=== PATIENT | female | born 2000 | race Caucasian/White ===

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

== ENCOUNTER 2021-01-30 19:50 | Emergency (ER) | payer OTHER ==
[~2021-01-30] VITALS: Ht 170.2 cm; Wt 61.2 kg
[2021-01-30 21:10] LABS: BASOPHILS ABSOLUTE AUTO 0.01 K/mm3 (0.00-0.23); BASOPHILS PERCENT AUTO 0 % (0-2); EOSINOPHILS ABSOLUTE AUTO 0.01 K/mm3 (0.00-0.68); EOSINOPHILS PERCENT AUTO 0 % (0-6); Hemoglobin 13.8 g/dL (11.5-16.0); IMMATURE GRAN PERCENT AUTO 0 % (0-1); LYMPHOCYTES ABSOLUTE AUTO 0.91 K/mm3 (0.84-5.20); LYMPHOCYTES PERCENT AUTO 25 % (21-46); MONOCYTES ABSOLUTE AUTO 0.39 K/mm3 (0.16-1.47); MONOCYTES PERCENT AUTO 11 % (4-13); Mean Corpuscular HGB 29.7 pg (26.0-34.0); Mean Corpuscular HGB Conc 33.7 g/dL (31.5-36.5); Mean Corpuscular Volume 88 fL (80-100); Mean Platelet Volume 11.2 fL (9.1-12.4); NEUTROPHILS PERCENT AUTO 64 % (41-73); Platelet Count 162 K/mm3 (150-400); RDW Coefficient Variation 12.7 % (11.7-14.2); RDW Standard Deviation 41.5 fL (35.1-46.3); Red Blood Cell Count 4.64 M/mm3 (3.80-5.20); White Blood Cell Count 3.72 K/mm3 (4.00-11.30)
[2021-01-30 21:28] LABS: Alanine Aminotransfer (ALT/SGP 21 U/L (12-78); Albumin, Blood 3.8 g/dL (3.4-5.0); Alk Phos 55 U/L (50-136); Anion Gap 4 mmol/L (6-16); Aspartate Aminotrans (AST/SGOT 22 U/L (12-37); Bilirubin, Total 0.2 mg/dL (0.1-1.0); Blood Urea Nitrogen 11 mg/dL (8-24); CO2, Blood 26 mmol/L (21-32); Calcium, Blood 8.9 mg/dL (8.5-10.1); Chloride, Blood 108 mmol/L (98-108); Creatinine, Blood 0.78 mg/dL (0.40-1.00); Globulin, Blood 3.9 g/dL (2.2-4.0); Glomerular Filtration Rate >60 (60-); Glucose, Blood 94 mg/dL (70-99); Potassium, Blood 3.8 mmol/L (3.5-5.5); Sodium, Blood 138 mmol/L (136-145); Total Protein, Blood 7.7 g/dL (6.4-8.2)
[2021-01-30 21:36] LABS: Source, Urine Voided
[2021-01-30 21:38] LABS: Appearance, Urine Hazy (Clear); Bilirubin, Urine Neg (Neg); Blood, Urine Neg (Neg); Color, Urine Yellow (P-Yellow); Glucose Qualitative, Urine Neg (Neg); Ketones, Urine 1+ (Neg); Leukocyte Esterase, Urine Neg (Neg); Nitrite, Urine Neg (Neg); Protein, Urine 2+ (Neg); Specific Gravity, Urine 1.025 (1.003-1.022); Urobilinogen, Urine 1+ (Normal)
[2021-01-30 21:46] LABS: Bacteria Many /hpf; Red Blood Cells, Urine Not Seen /hpf (0-2); Squamous Epithelial Cells Mod /hpf (Few); White Blood Cells, Urine 0-2 /hpf (0-5)
== END 2021-01-30 23:00 | disposition home or self-care (01) ==
LOC: ER 19:50
PROVIDERS: Emergency Medicine; Physician Assistant
DX: U07.1 COVID-19 (principal)
CPT/HCPCS: 71045; 80053; 81001; 85025; 87086; 96374; 99284-25; J1885; J7030

== ENCOUNTER 2022-03-02 07:07 | Emergency (ER) | payer OTHER ==
[~2022-03-02] VITALS: Ht 170.2 cm; Wt 63.5 kg
[2022-03-02] MEDS ORDERED: CEPH500 PO (08:39)
[2022-03-02] MEDS ORDERED: Norco 5-325 Ta1 EACH PO (10:42)
== END 2022-03-02 11:15 | disposition home or self-care (01) ==
LOC: ER 07:07
DX: S62.634B Displaced fracture of distal phalanx of right ring finger, initial encounter for open fracture (principal); W27.8XXA Contact with other nonpowered hand tool, initial encounter; Y92.69 Other specified industrial and construction area as the place of occurrence of the external cause; Z87.891 Personal history of nicotine dependence
CPT/HCPCS: 73130; 90714; A9270

== ENCOUNTER 2025-07-03 16:08 | Observation (INO) | payer OTHER ==
[~2025-07-03] VITALS: Ht 170.2 cm; Wt 61.2 kg
[~2025-07-03 16:08] MED LIST: CEPH500 PO; Norco 5-325 Ta1 EACH PO
[2025-07-03 16:49] LABS: BASOPHILS ABSOLUTE AUTO 0.04 K/mm3 (0.00-0.23); BASOPHILS PERCENT AUTO 1 % (0-2); EOSINOPHILS ABSOLUTE AUTO 0.13 K/mm3 (0.00-0.68); EOSINOPHILS PERCENT AUTO 2 % (0-6); Hematocrit 42.9 % (33.0-51.0); Hemoglobin 14.7 g/dL (11.5-16.0); IMMATURE GRAN ABSOLUTE AUTO 0.03 K/mm3 (0.00-0.10); IMMATURE GRAN PERCENT AUTO 0 % (0-1); LYMPHOCYTES ABSOLUTE AUTO 2.17 K/mm3 (0.84-5.20); LYMPHOCYTES PERCENT AUTO 25 % (21-46); MONOCYTES ABSOLUTE AUTO 0.58 K/mm3 (0.16-1.47); MONOCYTES PERCENT AUTO 7 % (4-13); Mean Corpuscular HGB Conc 34.3 g/dL (31.5-36.5); Mean Corpuscular Volume 90 fL (80-100); NEUTROPHILS ABSOLUTE AUTO 5.63 K/mm3 (1.96-9.15); NEUTROPHILS PERCENT AUTO 66 % (41-73); NRBC ABSOLUTE 0.00 K/mm3 (0.00-0.02); NRBC Auto 0.0 /100 WBC (0.0-0.2); Platelet Count 294 K/mm3 (150-400); RDW Coefficient Variation 12.6 % (11.7-14.2); RDW Standard Deviation 41.5 fL (35.1-46.3)
[2025-07-03 17:17] LABS: Ethanol (Alcohol), Blood, Med <3 mg/dL; Salicylate <1.7 mg/dL (2.8-20.0)
[2025-07-03 17:23] LABS: U Amphetamine Screen Not Detected; U Barbiturate Screen Not Detected; U Benzodiazapine Screen Not Detected; U Cannabinoids Screen DETECTED; U Cocaine Screen Not Detected; U Methadone Screen Not Detected; U Methamphetamine Screen Not Detected
[2025-07-03 17:24] LABS: U Buprenorphine Screen Not Detected; U Opiates Screen Not Detected; U Oxycodone Screen Not Detected; U Phencyclidine Screen Not Detected
[2025-07-03 17:31] LABS: Alanine Aminotransfer (ALT/SGP 22 U/L (12-78); Albumin, Blood 4.3 g/dL (3.4-5.0); Albumin/Globulin Ratio 1.2 (0.8-1.8); Anion Gap 9 mmol/L (3-11); Aspartate Aminotrans (AST/SGOT 19 U/L (12-37); Bilirubin, Total 0.5 mg/dL (0.1-1.0); Blood Urea Nitrogen 8 mg/dL (8-24); CO2, Blood 24 mmol/L (21-32); Calcium, Blood 9.5 mg/dL (8.5-10.1); Chloride, Blood 106 mmol/L (98-108); Creatinine, Blood 0.72 mg/dL (0.40-1.00); Globulin, Blood 3.5 g/dL (2.2-4.0); Glucose, Blood 96 mg/dL (70-99); Potassium, Blood 3.6 mmol/L (3.5-5.5); Sodium, Blood 135 mmol/L (136-145); Total Protein, Blood 7.8 g/dL (6.4-8.2)
[2025-07-03 17:53] LABS: Acetaminophen, Random <2.0 ug/mL (10.0-30.0)
[2025-07-04 08:44] VITALS: BP 113/78
[2025-07-08] MEDS ORDERED: MIRT15 PO (11:06)
== END 2025-07-04 15:22 | disposition other institution (70) ==
LOC: ER 16:08 → EOR 16:09
PROVIDERS: ADMIT Student in an Organized Health Care Education/Training Program
DX: T45.0X2A Poisoning by antiallergic and antiemetic drugs, intentional self-harm, initial encounter (principal); F33.9 Major depressive disorder, recurrent, unspecified; F17.290 Nicotine dependence, other tobacco product, uncomplicated; F12.10 Cannabis abuse, uncomplicated
CPT/HCPCS: 80053; 80320; 81025; 85025; 93005; 93010; 99285-25; A9270; G0378; G0480

== ENCOUNTER 2025-07-04 08:40 | Inpatient (IN) | payer OTHER ==
[~2025-07-04] VITALS: Ht 170.2 cm; Wt 60.5 kg
[2025-07-04 15:40] VITALS: BP 115/82
[2025-07-04 16:01] VITALS: BP 115/82
--- NOTE | 2025-07-04 17:10 | NUR ---
ADMISSION NOTE/SHIFT SUMMARY PT ARRIVED FROM [facility] AT APPROX 1536. PT WAS PLACED ON INVOLUNTARY HOLD AFTER SUICIDE ATTEMPT VIA OD ON "A BOTTLE OF CLARITIN." PT ENDORSES STILL FEELING SUICIDAL, STATING "I HAVE ALWAYS FELT LIKE THIS," BUT DENIES PLAN OR INTENT TO CARRY OUT THOUGHTS AT THIS TIME. PT'S AFFECT IS CONSTRICTED, BUT GENERALLY COOPERATIVE WITH INTAKE. SHE DECLINED ANY FURTHER PERSONAL DETAILS OR TRIGGERING EVENTS THAT CONTRIBUTED TO HER STATE OF MIND. THE PT WAS UNABLE TO REMOVE A RIGHT SIDE NOSE RING AND LEFT DERMAL PIERCING TO HER CHEEK. PT WAS TEARFUL ON AND OFF DURING ASSESSMENT. SHE ENDORSES POOR SOCIAL SUPPORT AND POTENTIAL UNSTABLE LIVING ENVIRONMENT. SHE CURRENTLY OWNS HER HOME WHERE SHE LIVES WITH HER AND MOTHER IN [place]. SHE IS EMPLOYED AT THE LOCAL [employer]. PT STATES THAT SHE IS OPEN TO MENTAL HEALTH TREATMENT INCLUDING MEDICATIONS, BUT IN THE PAST SHE HAS NOT SEEKED [facility] DUE TO INABILITY TO PAY AND FEAR OF MEDICATION SIDE EFFECTS. PT'S ADMISSION WAS COMPLETED AND SHE WAS ORIENTED TO THE UNIT AND PROVIDED WITH SHOWER SUPPLIES. PT ALSO USED TO PHONE TO REACH OUT TO HER JOB TO NOTIFY THEM OF HER ABSENCE. PT IS CURRENTLY SITTING IN GROUP ROOM WATCHING TV WITH PEERS. SHE DENIES ANY NEEDS AT THIS TIME.
[2025-07-04] MEDS ORDERED: Aluminum Hydroxide 320MG/5ML 473 ML PO PRN (18:25)
[2025-07-04] MEDS ORDERED: FLU VACC TS2025-26(6MOS UP)/PF 45 MCG/0.5 ML SYRINGE IM ONE (18:30)
[2025-07-04] MEDS ORDERED: Ondansetron 4 MG SoluTab MM PRN (18:35)
[2025-07-04] MEDS ORDERED: Polyethylene Glycol 3350 17 gm PO PRN (18:35)
[2025-07-04] MEDS ORDERED: FLU VACC TS2025-26(6MOS UP)/PF 45 MCG/0.5 ML SYRINGE IM SCH (19:00)
[2025-07-04 20:06] VITALS: BP 108/76
--- NOTE | 2025-07-04 23:38 | NUR ---
MID SHIFT SUMMARY PATIENT UP IN [place] WATCHING MOVIE WITH PEERS. VERBALIZED SHE IS FEELING "LOST" POOR EYE CONTACT DURING ASSESSMENT. DENIES SI, HI OR AVTH. VERBALIZED THAT SHE WORKS NIGHTS AND REQUESTING SLEEP AID TONIGHT TRAZODONE GIVEN. PIERCING INTACT TO LEFT CHEEK AND RIGHT NOSE. AFTER SNACK AND WATCHING END OF MOVIE PATIENT GOING TO BED. APPEARS TO BE SLEEPING RESP EVEN AND UNLABORED. CONTINUE TO MONITOR Q15MIN.
--- NOTE | 2025-07-05 04:06 | NUR ---
END OF SHIFT UPDATE ASSUMED CARE OF PT AT 0015. NO ACUTE CHANGES, PT HAS REMAINED IN BED. Q15 MINUTE CHECKS TO CONTINUE PER PT SAFETY AND WELLNESS.
[2025-07-05] MEDS ORDERED: Multivitamins 1 Tab PO SCH (09:00)
--- NOTE | 2025-07-05 15:56 | NUR ---
SHIFT SUMMARY tHIS IS AN INVOLUNTARY PATIENT ON A HOLD UNTIL 07/08/25. SHE HAS NO INSIGHT TO WHY SHEIS ON A HOLD. SHE FEELS LIKE HER MADE HER COME TO THE ER, AND THEN THE DRMarlee PUT HER ON A HOLD FOR NO REASON. (ATTEMPTED TO OD ON CLARITIN). THE PATIENTS THOUGHT PROCESS APPEARS TO NOT BE LOGICAL BASED ON THE ABOVE. THOUGHT CONTENT IS NOT PARANOID OR DELUSIONAL BUT HER AFFECT IS FLAT AND SHE APPEARS TO BE DEPRESSED. SHE DENIES SI, AH, VH, SH. SHE STATES THE ONLY THING i HAVE IS REGRET. SHE REGRETS TELLING HER THAT SHE SWALLOWED CLARITIN. HER APPEARANCE IS DISVEVELED AND SHE SPENT THE MAJORITY OF HER DAY IN BED. PATIENT HAS CLEAR SPEECH AND IS ABLE TO MAKE HER NEEDS KNOWN. SHE HAS PIERCINGS- NOSE-IN PLACE, CHEEK-UNDER EYE 2 AND BOTH ARE IN PLACE.
[2025-07-05 19:12] VITALS: BP 127/79
--- NOTE | 2025-07-06 05:19 | NUR ---
Patient spent the evening out in the milieu with her peers. She states she still "has suicidal feelings" but has no plan at this time. She denies HI, AVDANIEL during evening assessment. Up for snack Then to bed for the rest of the night. Will continue close monitoring every 15 minutes for comfort and safety
[2025-07-06 08:46] LABS: CHOL/HDL RATIO 2.8; Cholesterol 158 mg/dL (50-200); HDL Cholesterol 57 mg/dL (>39); LDL/HDL RATIO 1.5; Low Density Lipoprotein Chol 86 mg/dL (0-110); Triglycerides 77 mg/dL (30-140); Very Low Density Lipoprot Chol 15 mg/dL (6-28)
[2025-07-06 08:57] VITALS: BP 126/87
--- NOTE | 2025-07-06 17:27 | NUR ---
SHIFT SUMMARY PT DENIES SI/HI/AVTH THIS SHIFT. SHE IS EUTHYMIC AND INTERACTING WITH PEERS AND STAFF ON THE UNIT. PT IS CALM THIS SHIFT. SHE ATTENDED GROUPS AND MEALS. PT ASKED THIS RN TO CALL HER WORK HR DEPARTMENT AT [facility] AND LET THEM KNOW THAT SHE WAS HOSPITALIZED UNTIL FURTHER NOTICE. SHE DID REQUEST A WORK NOTE UPON D/C. THIS RN NOTIFIED HR, REQUESTED. THEY WILL BE SENDING A PACKET OF PAPERS VIA MAIL AND EMAIL TO [employer] EMA[employer]. FOR PT TO FILL OUT FOR HER MEDICAL WORK RELEASE. PT WAS NOTIFIED OF THIS INFORMATION, WAS [employer]. PT HAD NO EXCEPTIONAL BEHAVIORS TO REPORT THIS SHIFT.
[2025-07-06 19:21] VITALS: BP 120/79
--- NOTE | 2025-07-07 04:23 | NUR ---
SHIFT SUMMARY 24 YEAR-OLD FEMALE PRESENTS WELL GROOMED. SHE IS ALERT AND ORIENTED. SHE SPEAKS IN A CLEAR VOICE AND IN AN APPROPRIATE VOLUME. SHE IS ABLE TO MAKE AND KEEP EYE CONTACT DURING CONVERSATIONS. AT THE TIME OF HER ASSESSMENT, SHE DESCRIBED HER MOOD "PRETTY GOOD/5 OUT OF 5". SHE ALSO DENIED SI, HI, AND AVTH AT THAT TIME. SHE ATTENDED SNACK AND DAY ROOM. SHE WAS COMPLIANT WITH CARE AND MEDICATION ADMINISTRATION. SHE DID NOT RECEIVE ANY PRN MEDICATIONS. PIERCINGS IN HER LEFT EYEBROW AND RIGHT NOSTRIL AND INTACT. SHE CONTINUES TO BE MONITORED EVERY 15 MINUTES FOR WELLNESS AND SAFETY.
[2025-07-07 08:42] VITALS: BP 120/83
--- NOTE | 2025-07-07 09:15 | NUR ---
JEWELRY NOSE PIERCING AND DERMALS IN PLACE.
--- NOTE | 2025-07-07 18:10 | NUR ---
SHIFT SUMMARY PT DENIES SI, HI, AVTH. PLEASANT AND COOPERATIVE. HAS BEEN TO MEALS, GROUPS, AND INTERACTING W/ PEERS/STAFF. NO ACUTE EVENTS TODAY. JEWELRY STILL IN PLACE (SEE PREVIOUS NOTE).
[2025-07-07 19:15] VITALS: BP 130/87
--- NOTE | 2025-07-08 04:09 | NUR ---
SHIFT SUMMARY 24 YEAR-OLD FEMALE PRESENTS WELL GROOMED. SHE IS ALERT AND ORIENTED. SHE SPEAKS IN A CLEAR VOICE AND IN AN APPROPRIATE VOLUME. SHE IS ABLE TO MAKE AND KEEP EYE CONTACT DURING CONVERSATIONS. AT THE TIME OF HER ASSESSMENT, SHE DESCRIBED HER MOOD SAD AND AXIOUS. SHE RELAYED THAT SHE HAD A STRESSFUL PHONE CALL WITH HER SIGNIFICANT OTHER AND IS NOW WORRYING ABOUT THE FUTURE SHE ALSO DENIED SI, HI, AND AVTH AT THAT TIME. SHE ATTENDED SNACK AND DAY ROOM. SHE WAS COMPLIANT WITH CARE AND MEDICATION ADMINISTRATION. SHE DID NOT RECEIVE ANY PRN MEDICATIONS. PIERCINGS IN HER LEFT CHEEK AND RIGHT NOSTRIL ARE INTACT. SHE CONTINUES TO BE MONITORED EVERY 15 MINUTES FOR WELLNESS AND SAFETY.
[2025-07-08 08:43] VITALS: BP 142/90
--- NOTE | 2025-07-08 10:42 | NUR ---
IMPORTANT DISCHARGE INFORMATION PATIENT TO BE DISCHARGED TODAY. HER SISTER "CHASE" WILL BE PICKING HER UP AROUND 1PM. SHE WILL BE STAYING WITH HER FOR A COUPLE OF WEEKS. FOLLOW UP WITH [facility] FOR CONTINUED MENTAL HEALTH SERVICES. OPEN ACCESS AND CRISIS ARE AVAILABLE TO HER. FOLLOW UP WITH [facility] IN [place]. THEY CAN OFFER HER PRIMARY CARE AND MENTAL HEALTH SERVICES. NEW PATIENT PACKET GIVEN AT DISCHARGE. PHARMACY: [facility] [phone]
[2025-07-08] MEDS ORDERED: MIRT15 PO ×2 (11:06)
--- NOTE | 2025-07-08 12:58 | NUR ---
SHIFT SUMMARY PT DENIES SI, HI, AVTH. ENDORSES BEING "EXCITED" ABOUT DISCHARGE AND SPENDING TIME W/ HER SISTER, NIECE, AND GOING HORSEBACK RIDING. PT DISCHARGE FORMS SIGNED, DISCHARGE PACKET GIVEN/REVIEWED W/ PATIENT. RESOURCES GIVEN TO PT. NO ACUTE EVENTS. BELONGINGS WITH PATIENT.
== END 2025-07-08 13:04 | disposition home or self-care (01) | DRG 885 ==
LOC: BHU 08:40
PROVIDERS: Psychiatry & Neurology Psychiatry; ADMIT Psychiatry & Neurology Psychiatry
DX: F33.2 Major depressive disorder, recurrent severe without psychotic features (principal); R45.851 Suicidal ideations; F12.10 Cannabis abuse, uncomplicated; Z91.51 Personal history of suicidal behavior
CPT/HCPCS: 36415; 80061; 83036; A9270